=== PATIENT | female | born 1970 | race Two or more races ===

== ENCOUNTER 2018-11-15 21:42 | Emergency (ER) | payer MEDICAID ==
[~2018-11-15] VITALS: Ht 149.9 cm; Wt 66.0 kg
[2018-11-15] MEDS ORDERED: BACITRACIN 15GM TUBE TOP NR (22:30)
[2018-11-15 22:54] LABS: CLARITY URINE CLEAR (CLEAR); COLOR URINE YELLOW (YELLOW); KETONES URINE NEGATIVE (NEGATIVE); LEUKOCYTE ESTERASE URINE NEGATIVE (NEGATIVE); NITRITE URINE NEGATIVE (NEGATIVE); OCCULT BLOOD URINE NEGATIVE (NEGATIVE); PH URINE 7.5 (4.5-8.0); PROTEIN URINE NEGATIVE (NEGATIVE); SPECIFIC GRAVITY URINE 1.002 (1.005-1.030); UROBILINOGEN URINE 0.2 E.U./dL (0.2-1.0)
[2018-11-15 23:02] LABS: EOSINOPHILS % 0.6 % (0.0-5.0); HEMATOCRIT. 40.3 % (36.0-48.0); HEMOGLOBIN. 13.8 g/dL (12.0-16.0); LYMPHOCYTES % 12.8 % (20.0-50.0); MEAN CORPUSCULAR HEMOGLOBIN 28.4 pg (28.0-32.0); MEAN CORPUSCULAR VOLUME 83.4 fL (81.0-99.0); MONOCYTES % 5.6 % (2.0-8.0); PLATELET 292 x1000/uL (130-400); RED BLOOD CELL COUNT 4.84 mill/uL (4.2-5.4); RED CELL DISTRIBUTION WIDTH 15.1 % (11.6-14.6)
[2018-11-15 23:08] LABS: CHLORIDE 105 mEq/L (98-107)
[2018-11-15 23:11] LABS: PARTIAL THROMBOPLASTIN TIME 27.2 sec (23.4-31.0); PROTHROMBIN TIME 10.3 sec (9.6-11.0)
[2018-11-16 00:41] VITALS: BP 165/88
== END 2018-11-16 06:23 | disposition home or self-care (01) ==
LOC: ER 21:42
DX: S30.1XXA Contusion of abdominal wall, initial encounter (principal); S10.81XA Abrasion of other specified part of neck, initial encounter; S40.811A Abrasion of right upper arm, initial encounter; S80.12XA Contusion of left lower leg, initial encounter; S80.11XA Contusion of right lower leg, initial encounter; S70.02XA Contusion of left hip, initial encounter; S70.01XA Contusion of right hip, initial encounter; R11.0 Nausea; Y93.01 Activity, walking, marching and hiking; Y04.2XXA Assault by strike against or bumped into by another person, initial encounter; Y93.89 Activity, other specified; Y92.480 Sidewalk as the place of occurrence of the external cause; R03.0 Elevated blood-pressure reading, without diagnosis of hypertension; N83.201 Unspecified ovarian cyst, right side; K43.9 Ventral hernia without obstruction or gangrene
CPT/HCPCS: 36415; 71045; 74176; 80053; 81003; 81025; 83690; 85025; 85610; 85730; 86850; 86900; 86901; 99284; Z7610